=== PATIENT | female | born 1970 | race Two or more races ===

== ENCOUNTER 2022-02-23 22:29 | Emergency (ER) | payer OTHER ==
[~2022-02-23] VITALS: Ht 157.5 cm; Wt 65.8 kg
[2022-02-23] MEDS ORDERED: COZAAR100 MG PO (22:37)
[2022-02-24] MEDS ORDERED: PYRIDIUM DS200 MG PO (02:43)
[2022-02-24] MEDS ORDERED: CIPRO500 MG PO (02:43)
== END 2022-02-24 02:53 ==
LOC: ER 22:29
DX: N30.91 Cystitis, unspecified with hematuria (principal); N93.9 Abnormal uterine and vaginal bleeding, unspecified; I10 Essential (primary) hypertension